=== PATIENT | female | born 1985 | race Caucasian/White ===

== ENCOUNTER 2017-02-22 13:53 | Inpatient (IN) | payer MEDICAID ==
[2017-02-22] MEDS ORDERED: Citric Acid/Sodium Citrate Solution 30 ML Cup PO ONE (14:55)
[2017-02-22] MEDS ORDERED: ceFAZolin 1 GM in Premix Bag 1 BAG IV ONE (14:55)
[2017-02-22] MEDS ORDERED: ceFAZolin 2 GM in Premix Bag 1 BAG IV ONE (14:55)
[2017-02-22] MEDS ORDERED: Metoclopramide 10 MG/2 ML SDV IVPUSH ONE (14:55)
[2017-02-22] MEDS ORDERED: Sodium Chloride 0.9% 10 ML Syringe FLUSH PRN (14:55)
[2017-02-22] MEDS ORDERED: Lactated Ringers 1,000 ML IV SCH ×2 (15:00→18:25)
--- NOTE | 2017-02-22 15:01 | PCM.LDHP ---
L&D History of Present Illness - General Date of Service: 02/22/17 Admit Problem/Dx: Patient Status Order with Admit Dx/Problem 02/22/17 14:55 Patient Status [ADT] Routine Admission Diagnosis/Problem Admission Diagnosis/Problem Pre-eclampsia Source of Information: Patient History Limitations: Reports: No Limitations - History of Present Illness Introduction:: Patient is a 31 y/o at 37 3/7 wks who presents for blood pressure monitoring after being seen in clinic. Had initially presented to clinic today with concerns of contractions. Cervix was closed, but she was noted to have 2 mild range blood pressures. Also had complained of some intermittent headaches. 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 (Approximate): Endocrine/Metabolic History: Reports: Diabetes, Gestational - Past Surgical History GI Surgical History: Reports: Cholecystectomy Female Surgical History: Reports: Section, D&C Musculoskeletal Surgical History: Reports: Arthroscopic Knee Social & Family History - Tobacco Use Smoking Status *Q: Current Every Day Smoker - Alcohol Use Alcohol Use History: No - Recreational Drug Use Recreational Drug Use: No H&P Review of Systems - Review of Systems: Review Of Systems: See Below General: Reports: No Symptoms Pulmonary: Reports: No Symptoms Cardiovascular: Reports: No Symptoms Gastrointestinal: Reports: No Symptoms Genitourinary: Reports: No Symptoms Musculoskeletal: Reports: No Symptoms Psychiatric: Reports: No Symptoms Neurological: Reports: Headache L&D Exam - Exam Exam: See Below - Vital Signs Vital Signs: Last Vital Signs Temp 36.8 C 02/22/17 14:05 Pulse 88 02/22/17 14:05 Resp 18 02/22/17 14:05 BP 165/101 H 02/22/17 14:05 Pulse Ox 98 02/22/17 14:05 Weight: 129.637 kg - OB Specific Contraction Intensity: Mild Movement: Active Heart Tones: Present Heart Tones per Min: 135 Heart Rate (FHR) Variability: Moderate (6-25 bmp) Presentation: Unable to Assess - Villalba Score Villalba Score Cervix Position: Posterior Villalba Score Consistency: Firm Villalba Score Effacement: 0-30% Villalba Score Dilation: Closed Villalba Score Infant's Station: -3 Villalba Score Total: 0 - Exam General: Alert, Oriented, Cooperative Lungs: Clear to Auscultation, Normal Respiratory Effort Cardiovascular: Regular Rate, Regular Rhythm GI/Abdominal Exam: Soft, Non-Tender Genitourinary: Normal external exam Extremities: Normal Inspection Skin: Warm, Dry, Intact DTR: 3+: Patella (L), Patella (R) Psychiatric: Alert, Normal Affect, Normal Mood - Patient Data Lab Results Last 24 hrs: Laboratory Results - last 24 hr 02/22/17 02/22/17 Range/Units 14:34 14:34 WBC 11.47 H (3.98-10.04) K/mm3 RBC 4.12 (3.98-5.22) M/mm3 Hgb 12.5 (11.2-15.7) gm/L Hct 36.9 (34.1-44.9) % MCV 89.6 (79.4-94.8) fl MCH 30.3 (25.6-32.2) pg MCHC 33.9 (32.2-35.5) g/dl RDW Std Deviation 47.2 H (36.4-46.3) fL Plt Count 203 (182-369) K/mm3 MPV 10.9 (9.4-12.3) fl Creatinine 0.7 (0.55-1.02) mg/dL Est Cr Clr Drug Dosing 104.78 mL/min Estimated GFR (MDRD) > 60 (>60) mL/min AST 52 H (15-37) U/L ALT 85 H (14-59) U/L Result Diagrams: 02/22/17 14:34 02/22/17 14:34 - Problem List (1) 37 weeks gestation of SNOMED Code(s): 15182669 ICD Code: Z3A.37 - 37 WEEKS GESTATION OF Status: Acute Current Visit: Yes (2) Preeclampsia SNOMED Code(s): 059604569 ICD Code: O14.90 - UNSPECIFIED PRE-ECLAMPSIA, UNSPECIFIED TRIMESTER Status : Acute Current Visit: Yes Qualifiers: Trimester: third trimester Qualified Code(s): O14.93 - Unspecified pre- eclampsia, third trimester (3) History of SNOMED Code(s): 711480886 ICD Code: Z98.891 - HISTORY OF UTERINE SCAR FROM PREVIOUS SURGERY Status: Acute Current Visit: Yes Problem List Initiated/Reviewed/Updated: Yes Orders Last 24hrs: Active Orders 24 hr Category Date Time Status Patient Status [ADT] Routine ADT 02/22/17 14:55 Ordered Communication Order [RC] ROUTINE Care 02/22/17 14:55 Ordered Heart Tones [RC] PER UNIT ROUTINE Care 02/22/17 14:55 Ordered Peripheral IV Care [RC] . DIRECTED Care 02/22/17 14:56 Ordered Procedure Site Prep Instruct [RC] ASDIRECTED Care 02/22/17 14:55 Ordered Verify Patient Consent Obtain [RC] PER UNIT ROUTINE Care 02/22/17 14:55 Ordered Vital Signs [RC] PFP Care 02/22/17 14:55 Ordered Nothing Per Oral Diet [DIET] Diet 02/22/17 Lunch Ordered TYPE AND SCREEN [BBK] Routine Lab 02/22/17 14:54 Ordered UA W/O MICROSCOPIC [URIN] Routine Lab 02/22/17 14:13 Uncollected Citric Acid/Sodium Citrate [Bicitra Solution] Med 02/22/17 14:55 Once 30 ml PO ONETIME ONE Lactated Ringers @ 125 MLS/HR(1000ml) Med 02/22/17 15:00 Ordered Lactated Ringers [Ringers, Lactated] 1,000 ml IV ASDIRECTED Metoclopramide [Reglan] Med 02/22/17 14:55 Once 10 mg IVPUSH ONETIME ONE Sodium Chloride 0.9% [Saline Flush] Med 02/22/17 14:55 Ordered 10 ml FLUSH ASDIRECTED PRN ceFAZolin [Ancef] 1 gm Med 02/22/17 14:55 Ordered Premix Bag 1 bag IV ONETIME ceFAZolin [Ancef] 2 gm Med 02/22/17 14:55 Ordered Premix Bag 1 bag IV ONETIME Peripheral IV Insertion Adult [OM.PC] Routine Oth 02/22/17 14:55 Ordered Schedule Procedure [COMM] Per Unit Routine Oth 02/22/17 14:55 Ordered Resuscitation Status Routine Resus Stat 02/22/17 14:55 Ordered Assessment/Plan Comment:: 31 y/o at 37 3/7 wks presents for serial BP's with findings of all mild range and intermittently severe range BP's. Labs have also returned with mild elevation in LFT's (52/85). Will plan moving forward with RLTCS. Consent reviewed and signed. Plan for magnesium . Linda Soni MD
[2017-02-22] MEDS ORDERED: Pneumococcal Polyvalent-23 Vaccine 0.5 ML SDV IM ONE (15:04)
--- NOTE | 2017-02-22 15:17 | PCM.PREANE ---
Preanesthetic Assessment - Anesthesia/Transfusion/Family Hx Anesthesia History: Prior Anesthesia Without Reaction - Review of Systems General: No Symptoms Pulmonary: Other (smoker 1/2 pack per day) Cardiovascular: No Symptoms Gastrointestinal: Other (hearburn with ) Neurological: Other (fingertips are numb, intermittent headaches for the last couple of days) Other: Reports: None - Physical Assessment NPO Status Date: 02/22/17 NPO Status Time: 09:00 (cereal, H2O at 1500) Pulse: 81 O2 Sat by Pulse Oximetry: 98 Respiratory Rate: 18 Blood Pressure: 152/82 Temperature: 36.2 C Vital Signs: Last Vital Signs Temp 36.8 C 02/22/17 14:05 Pulse 88 02/22/17 14:05 Resp 18 02/22/17 14:05 BP 165/101 H 02/22/17 14:05 Pulse Ox 98 02/22/17 14:05 Height: 1.65 m Weight: 129.637 kg ASA Class: 2E Mental Status: Alert & Oriented x3 Airway Class: Mallampati = 2 Dentition: Reports: Normal Dentition Thyro-Mental Finger Breadths: 3 Mouth Opening Finger Breadths: 3 ROM/Head Extension: Full Lungs: Clear to Auscultation, Normal Respiratory Effort Cardiovascular: Regular Rate, Regular Rhythm - Lab Values: Laboratory Last Values WBC 11.47 K/mm3 (3.98-10.04) H 02/22/17 14:34 RBC 4.12 M/mm3 (3.98-5.22) 02/22/17 14:34 Hgb 12.5 gm/L (11.2-15.7) 02/22/17 14:34 Hct 36.9 % (34.1-44.9) 02/22/17 14:34 MCV 89.6 fl (79.4-94.8) 02/22/17 14:34 MCH 30.3 pg (25.6-32.2) 02/22/17 14:34 MCHC 33.9 g/dl (32.2-35.5) 02/22/17 14:34 RDW Std Deviation 47.2 fL (36.4-46.3) H 02/22/17 14:34 Plt Count 203 K/mm3 (182-369) 02/22/17 14:34 MPV 10.9 fl (9.4-12.3) 02/22/17 14:34 Creatinine 0.7 mg/dL (0.55-1.02) 02/22/17 14:34 Est Cr Clr Drug Dosing 104.78 mL/min 02/22/17 14:34 Estimated GFR (MDRD) > 60 mL/min (>60) 02/22/17 14:34 AST 52 U/L (15-37) H 02/22/17 14:34 ALT 85 U/L (14-59) H 02/22/17 14:34 - Allergies Allergies/Adverse Reactions: Allergies Allergy/AdvReac Type Severity Reaction Status Date / Time No Known Allergies Allergy Verified 02/22/17 14:06 - Blood Blood Available: No Product(s) Available: None - Anesthesia Plan Pre-Op Medication Ordered: None, Antacids - Acknowledgements Anesthesia Type Planned: Spinal Pt an Appropriate Candidate for the Planned Anesthesia: Yes Alternatives and Risks of Anesthesia Discussed w Pt/Guardian: Yes Pt/Guardian Understands and Agrees with Anesthesia Plan: Yes PreAnesthesia Questionnaire PRODUCTION LEAD History: Reports: Endocrine/Metabolic History: Reports: Diabetes, Gestational - Past Surgical History GI Surgical History: Reports: Cholecystectomy Female Surgical History: Reports: Section, D&C - SUBSTANCE USE Smoking Status *Q: Current Every Day Smoker Recreational Drug Use History: No - HOME MEDS Home Medications: Home Meds Vits #93/Iron Fum/FA [ Formula Tablet] 1 each PO DAILY [History] - CURRENT (IN HOUSE) MEDS Current Meds: Current Medications Lactated Ringer's (Ringers, Lactated) 1,000 mls @ 125 mls/hr IV ASDIRECTED HAYES Cefazolin Sodium/Dextrose 2 gm (/ Premix) 50 mls @ 100 mls/hr IV ONETIME ONE Stop: 02/22/17 15:24 Cefazolin Sodium/Dextrose 1 gm (/ Premix) 50 mls @ 100 mls/hr IV ONETIME ONE Stop: 02/22/17 15:24 Sodium Chloride (Saline Flush) 10 ml FLUSH ASDIRECTED PRN PRN Reason: Keep Vein Open Discontinued Medications Citric Acid/Sodium Citrate (Bicitra Solution) 30 ml PO ONETIME ONE Stop: 02/22/17 14:56 Metoclopramide HCl (Reglan) 10 mg IVPUSH ONETIME ONE Stop: 02/22/17 14:56 Pneumococcal Polyvalent Vaccine (Pneumovax 23) 0.5 ml IM .ONCE ONE Stop: 02/22/17 15:05
[2017-02-22] MEDS ORDERED: Ketorolac 30 MG/ML SDV ONE (15:49)
[2017-02-22] MEDS ORDERED: Morphine PF 10 MG/10 ML SDV ONE (15:49)
[2017-02-22] MEDS ORDERED: ceFAZolin 1 GM Vial ONE ×2 (15:49→15:50)
[2017-02-22] MEDS ORDERED: Oxytocin 10 Units/1 ML SDV ONE (15:49)
[2017-02-22] MEDS ORDERED: Lactated Ringers 2,000 ML ONE (15:50)
[2017-02-22] MEDS ORDERED: Phenylephrine 1% 10 MG/ML SDV ONE (15:50)
[2017-02-22] MEDS ORDERED: Ondansetron 4 MG/2 ML SDV ONE (15:50)
--- NOTE | 2017-02-22 15:51 | PCM.OPNOTE ---
- General Post-Op/Procedure Note Date of Surgery/Procedure: 02/22/17 Operative Procedure(s): Repeat low transverse Findings: Moderate scar tissue between the rectus muscles and fascia. Moderate scar tissue between the bladder and the uterus. Thin lower uterine segment. Baby girl in a vertex presentation with weight of 7 lbs 14 oz and APGARS of 8 & 9. Normal appearance of uterus, fallopian tubes, and ovaries. Pre Op Diagnosis: 37 weeks gestation. Severe preeclampsia. History of c- section x3 Post-Op Diagnosis: Same Anesthesia Technique: Spinal Primary Surgeon: Linda Soni Secondary Surgeon: Ye Lindo Anesthesia Provider: Yohana Abdi Pathology: Cold blood collected. Placenta discarded. Fluid Replacement, Intraop: 1,150 Output, Urine Amount: 200 EBL in mLs: 500 Complications: None Condition: Good Free Text/Narrative:: The risks, benefits, indications, potential complications, and alternatives were explained to the patient and informed consent obtained. After induction of anesthesia, the patient was placed in a supine position and then draped and prepped in the usual sterile manner. A Pfannenstiel incision was made and carried down through the subcutaneous tissue to the fascia. Fascial incision was made and extended transversely. The fascia was from the underlying rectus tissue superiorly and inferiorly. The peritoneum was identified and entered. Peritoneal incision was extended longitudinally. The utero-vesical peritoneal reflection was incised transversely and the bladder flap was bluntly freed from the lower uterine segment. A low transverse uterine incision was made sharply with a scalpel and extended bluntly in a cephalocaudad direction. A baby girl was delivered from a vertex presentation with APGARS as above. After the umbilical cord was clamped and cut cord blood was obtained for evaluation. The placenta was removed intact and appeared normal. The uterus was exteriorized and cleared of clots. The uterine outline, tubes and ovaries appeared normal. The uterine incision was closed with running locked sutures of 0 Vicryl. Hemostasis was obtained by a second imbricating layer of 0 vicryl and several interrupted 0 vicryl sutures placed in figure of eight fashion. The uterus was then placed back into the abdomen. The infracolic gutters were cleared of blood clots. The fascia was then reapproximated with running sutures of looped 1 PDS. The sucutaneous tissue was irrigated with sterile warm normal saline, hemostasis obtained with cautery. This layer was also closed with a running 0 vicryl. The skin was reapproximated with running Subcuticular 4-0 monocryl sutures. Instrument, sponge, and needle counts were correct prior the abdominal closure and at the conclusion of the case.
[2017-02-22] MEDS ORDERED: ePHEDrine 50 MG/ML SDV IVPUSH PRN (16:22)
[2017-02-22] MEDS ORDERED: diphenhydrAMINE 50 MG/ML SDV IVPUSH PRN ×2 (16:22→18:25)
[2017-02-22] MEDS ORDERED: fentaNYL 100 MCG/2 ML SDV IVPUSH PRN (16:22)
[2017-02-22] MEDS ORDERED: Ondansetron 4 MG/2 ML SDV IVPUSH PRN (16:22)
[2017-02-22] MEDS ORDERED: HYDROmorphone 0.5 MG/0.5 ML Syringe IVPUSH PRN (16:22)
[2017-02-22] MEDS ORDERED: Meperidine PF 50 MG/ML Syringe IVPUSH PRN (16:22)
[2017-02-22] MEDS ORDERED: Phenylephrine 1 MG in Sodium Chloride 0.9% 10 ML IV SCH (16:30)
[2017-02-22] MEDS ORDERED: fentaNYL 100 MCG/2 ML SDV ONE (16:59)
--- NOTE | 2017-02-22 17:08 | PCM.POSTAN ---
POST ANESTHESIA ASSESSMENT - MENTAL STATUS Mental Status: Alert - VITAL SIGNS Pulse Rate: 70 SaO2: 97 Resp Rate: 21 Blood Pressure: 121/67 Temperature: 36.5 C - RESPIRATORY Respiratory Status: Respiratory Rate WNL, Airway Patent, O2 Saturation Stable, Supplemental Oxygen - CARDIOVASCULAR CV Status: Pulse Rate WNL, Blood Pressure Stable - GASTROINTESTINAL GI Status: No Symptoms - POST OP HYDRATION Hydration Status: Adequate & Stable
[2017-02-22] MEDS ORDERED: Magnesium Sulfate/Water 40 GM/1,000 ML BAG IV SCH (18:25)
[2017-02-22] MEDS ORDERED: Lanolin 100% Cream 7 GM Tube TOP PRN (18:25)
[2017-02-22] MEDS ORDERED: Calcium Gluconate 10% 1 GM/10 ML SDV IV PRN (20:26)
[2017-02-22] MEDS: Ketorolac 30 MG/ML SDV IVPUSH SCH (23:33)
[2017-02-23] MEDS ORDERED: Lactated Ringers 1,000 ML IV SCH (01:00)
[2017-02-23] MEDS: Ketorolac 30 MG/ML SDV IVPUSH SCH ×2 (05:46→11:00)
[2017-02-23] MEDS: Acetaminophen/oxyCODONE 325-5 MG Tab PO PRN ×3 (05:50→21:41)
--- NOTE | 2017-02-23 07:12 | PCM.PNPP ---
- General Info Date of Service: 02/23/17 Functional Status: Reports: Pain Controlled, Tolerating Diet - Review of Systems General: Reports: No Symptoms Pulmonary: Reports: No Symptoms Cardiovascular: Reports: No Symptoms Gastrointestinal: Reports: No Symptoms Genitourinary: Reports: No Symptoms Musculoskeletal: Reports: Shoulder Pain Neurological: Reports: No Symptoms - Patient Data Vital Signs - Most Recent: Last Vital Signs Temp 36.7 C 02/23/17 05:00 Pulse 72 02/23/17 05:02 Resp 18 02/23/17 06:00 BP 126/63 02/23/17 05:02 Pulse Ox 95 02/23/17 05:02 Weight - Most Recent: 129.637 kg I&O - Last 24 Hours: Intake & Output 02/22/17 02/23/17 02/23/17 22:59 06:59 14:59 Intake Total 2556 1770 Output Total 1355 645 Balance 1201 1125 Lab Results - Last 24 Hours: Laboratory Results - last 24 hr 02/22/17 02/22/17 02/22/17 Range/Units 14:34 14:34 14:35 WBC 11.47 H (3.98-10.04) K/mm3 RBC 4.12 (3.98-5.22) M/mm3 Hgb 12.5 (11.2-15.7) gm/L Hct 36.9 (34.1-44.9) % MCV 89.6 (79.4-94.8) fl MCH 30.3 (25.6-32.2) pg MCHC 33.9 (32.2-35.5) g/dl RDW Std Deviation 47.2 H (36.4-46.3) fL Plt Count 203 (182-369) K/mm3 MPV 10.9 (9.4-12.3) fl Creatinine 0.7 (0.55-1.02) mg/dL Est Cr Clr Drug Dosing 104.78 mL/min Estimated GFR (MDRD) > 60 (>60) mL/min AST 52 H (15-37) U/L ALT 85 H (14-59) U/L Urine Color (Yellow) Urine Appearance (Clear) Urine pH (5.0-8.0) Ur Specific Dane (1.005-1.030) Urine Protein (Negative) Urine Glucose (UA) (Negative) Urine Ketones (Negative) Urine Occult Blood (Negative) Urine Nitrite (Negative) Urine Bilirubin (Negative) Urine Urobilinogen (0.2-1.0) Ur Leukocyte Esterase (Negative) Blood Type A NEGATIVE Gel Antibody Screen Negative 02/22/17 02/23/17 02/23/17 Range/Units 14:40 06:10 06:10 WBC 11.26 H (3.98-10.04) K/mm3 RBC 3.47 L (3.98-5.22) M/mm3 Hgb 10.8 L (11.2-15.7) gm/L Hct 31.9 L (34.1-44.9) % MCV 91.9 (79.4-94.8) fl MCH 31.1 (25.6-32.2) pg MCHC 33.9 (32.2-35.5) g/dl RDW Std Deviation 48.4 H (36.4-46.3) fL Plt Count 193 (182-369) K/mm3 MPV 11.5 (9.4-12.3) fl Creatinine (0.55-1.02) mg/dL Est Cr Clr Drug Dosing mL/min Estimated GFR (MDRD) (>60) mL/min AST 58 H (15-37) U/L ALT 86 H (14-59) U/L Urine Color Yellow (Yellow) Urine Appearance Clear (Clear) Urine pH 7.0 (5.0-8.0) Ur Specific Dane 1.020 (1.005-1.030) Urine Protein Negative (Negative) Urine Glucose (UA) Negative (Negative) Urine Ketones Negative (Negative) Urine Occult Blood Negative (Negative) Urine Nitrite Negative (Negative) Urine Bilirubin Negative (Negative) Urine Urobilinogen 0.2 (0.2-1.0) Ur Leukocyte Esterase Negative (Negative) Blood Type Gel Antibody Screen 02/23/17 Range/Units 06:10 WBC (3.98-10.04) K/mm3 RBC (3.98-5.22) M/mm3 Hgb (11.2-15.7) gm/L Hct (34.1-44.9) % MCV (79.4-94.8) fl MCH (25.6-32.2) pg MCHC (32.2-35.5) g/dl RDW Std Deviation (36.4-46.3) fL Plt Count (182-369) K/mm3 MPV (9.4-12.3) fl Creatinine 0.8 (0.55-1.02) mg/dL Est Cr Clr Drug Dosing 91.68 mL/min Estimated GFR (MDRD) > 60 (>60) mL/min AST (15-37) U/L ALT (14-59) U/L Urine Color (Yellow) Urine Appearance (Clear) Urine pH (5.0-8.0) Ur Specific Dane (1.005-1.030) Urine Protein (Negative) Urine Glucose (UA) (Negative) Urine Ketones (Negative) Urine Occult Blood (Negative) Urine Nitrite (Negative) Urine Bilirubin (Negative) Urine Urobilinogen (0.2-1.0) Ur Leukocyte Esterase (Negative) Blood Type Gel Antibody Screen Med Orders - Current: Current Medications Calcium Gluconate (Calcium Gluconate) 1 gm IV ASDIRECTED PRN PRN Reason: respiratory distress Diphenhydramine HCl (Benadryl) 25 mg IVPUSH Q6H PRN PRN Reason: pruritis Last Admin: 02/22/17 18:48 Dose: 25 mg Diphenhydramine HCl (Benadryl) 25 mg IVPUSH Q6H PRN PRN Reason: Itching or Nausea Last Admin: 02/23/17 01:37 Dose: 25 mg Docusate Sodium (Colace) 100 mg PO Q12H PRN PRN Reason: Constipation Emollient Ointment (Lansinoh Hpa) 0 gm TOP ASDIRECTED PRN PRN Reason: Sore Nipples Ephedrine Sulfate (Ephedrine Sulfate) 5 mg IVPUSH ASDIRECTED PRN PRN Reason: Hypotension Phenylephrine HCl 1 mg/ Sodium (Chloride) 10.1 mls @ 1 mls/sec IV TITRATE HAYES PRN Reason: Protocol Lactated Ringer's (Ringers, Lactated) 1,000 mls @ 75 mls/hr IV ASDIRECTED HAYES Stop: 02/23/17 07:44 Last Admin: 02/22/17 19:04 Dose: 75 mls/hr Magnesium Sulfate (Magnesium Sulfate 40 Gm In Water 1000 Ml) 40 gm in 1,000 mls @ 50 mls/hr IV ASDIRECTED HAYES Last Admin: 02/22/17 19:05 Dose: 50 mls/hr Lactated Ringer's (Ringers, Lactated) 1,000 mls @ 75 mls/hr IV ASDIRECTED [facility] Last Admin: 02/23/17 01:27 Dose: 75 mls/hr Ibuprofen (Motrin) 600 mg PO Q6H PRN PRN Reason: mild pain or fever Ketorolac Tromethamine (Toradol) 30 mg IVPUSH Q6H HAYES Stop: 02/23/17 11:01 Last Admin: 02/23/17 05:46 Dose: 30 mg Meperidine HCl (Demerol) 12.5 mg IVPUSH ONETIME PRN PRN Reason: shivering Stop: 02/23/17 16:23 Ondansetron HCl (Zofran) 4 mg IVPUSH ONETIME PRN PRN Reason: Nausea/Vomiting Oxycodone/Acetaminophen (Percocet 325-5 Mg) 2 tab PO Q4H PRN PRN Reason: Pain (moderate 4-6) Last Admin: 02/23/17 05:50 Dose: 2 tab Discontinued Medications Cefazolin Sodium (Ancef) Confirm Administered Dose 2 gm .ROUTE .STK-MED ONE Stop: 02/22/17 15:50 Cefazolin Sodium (Ancef) Confirm Administered Dose 1 gm .ROUTE .STK-MED ONE Stop: 02/22/17 15:51 Citric Acid/Sodium Citrate (Bicitra Solution) 30 ml PO ONETIME ONE Stop: 02/22/17 14:56 Last Admin: 02/22/17 15:29 Dose: 30 ml Fentanyl (Sublimaze) 50 mcg IVPUSH Q5M PRN PRN Reason: Pain Stop: 02/22/17 16:38 Fentanyl (Sublimaze) Confirm Administered Dose 100 mcg .ROUTE .STK-MED ONE Stop: 02/22/17 17:00 Hydromorphone HCl (Dilaudid) 0.5 mg IVPUSH Q15M PRN PRN Reason: severe pain Stop: 02/22/17 16:38 Lactated Ringer's (Ringers, Lactated) 1,000 mls @ 125 mls/hr IV ASDIRECTED [facility] Last Admin: 02/22/17 15:00 Dose: 125 mls/hr Cefazolin Sodium/Dextrose 2 gm (/ Premix) 50 mls @ 100 mls/hr IV ONETIME ONE Stop: 02/22/17 15:24 Cefazolin Sodium/Dextrose 1 gm (/ Premix) 50 mls @ 100 mls/hr IV ONETIME ONE Stop: 02/22/17 15:24 Last Admin: 02/23/17 03:46 Dose: Not Given Lactated Ringer's (Ringers, Lactated) Confirm Administered Dose 2,000 mls @ as directed .ROUTE .STK-MED ONE Stop: 02/22/17 15:51 Ketorolac Tromethamine (Toradol) Confirm Administered Dose 30 mg .ROUTE .STK- MED ONE Stop: 02/22/17 15:50 Metoclopramide HCl (Reglan) 10 mg IVPUSH ONETIME ONE Stop: 02/22/17 14:56 Last Admin: 02/22/17 15:29 Dose: 10 mg Morphine Sulfate (Duramorph Pf) Confirm Administered Dose 10 mg .ROUTE .STK-MED ONE Stop: 02/22/17 15:50 Ondansetron HCl (Zofran) Confirm Administered Dose 4 mg .ROUTE .STK-MED ONE Stop: 02/22/17 15:51 Oxytocin (Pitocin) Confirm Administered Dose 10 unit .ROUTE .STK-MED ONE Stop: 02/22/17 15:50 Phenylephrine HCl (Andrew-Synephrine) Confirm Administered Dose 10 mg .ROUTE .STK- MED ONE Stop: 02/22/17 15:51 Pneumococcal Polyvalent Vaccine (Pneumovax 23) 0.5 ml IM .ONCE ONE Stop: 02/22/17 15:05 Sodium Chloride (Saline Flush) 10 ml FLUSH ASDIRECTED PRN PRN Reason: Keep Vein Open - Interaction Disposition, : in Room with Family Interaction: Holding Infant Infant Feeding: Bottle Fed Support Person: Significant Other - Recovery Exam Fundal Tone: Firm Fundal Level: 1 Fingerbreadths Above Umbilicus Fundal Placement: Midline Lochia Amount: Small, Moderate Lochia Color: Rubra/Red Perineum Description: Intact, Minimal Bruising/Swelling Episiotomy/Laceration: None Bladder Status: Indwelling Catheter in Place Urinary Elimination: Indwelling Catheter - Exam General: Alert, Oriented, Cooperative Lungs: Clear to Auscultation, Normal Respiratory Effort Cardiovascular: Regular Rate, Regular Rhythm GI/Abdominal Exam: Soft, Tender (appropriate) Extremities: Pedal Edema Skin: Warm, Dry, Intact Wound/Incisions: Dressing Dry and Intact Neurological: Reflexes Equal Bilateral (+2) - Problem List & Annotations (1) 37 weeks gestation of SNOMED Code(s): 24129303 Code(s): Z3A.37 - 37 WEEKS GESTATION OF Status: Acute Current Visit: Yes (2) Preeclampsia SNOMED Code(s): 953255733 Code(s): O14.90 - UNSPECIFIED PRE-ECLAMPSIA, UNSPECIFIED TRIMESTER Status: Acute Current Visit: Yes Qualifiers: Trimester: third trimester Qualified Code(s): O14.93 - Unspecified pre- eclampsia, third trimester (3) History of SNOMED Code(s): 662106002 Code(s): Z98.891 - HISTORY OF UTERINE SCAR FROM PREVIOUS SURGERY Status: Acute Current Visit: Yes - Problem List Review Problem List Initiated/Reviewed/Updated: Yes - My Orders Last 24 Hours: My Active Orders 02/22/17 14:55 Heart Tones [RC] PER UNIT ROUTINE Vital Signs [RC] PFP Resuscitation Status Routine 02/22/17 18:25 Antiembolic Devices [RC] BID Communication Order [RC] PER UNIT ROUTINE Intake and Output [RC] Q2HR Notify Provider Intake and Out [RC] ASDIRECTED RT Incentive Spirometry [RC] Q2HWA Vital Signs [RC] Q1HR Acetaminophen/oxyCODONE [Percocet 325-5 MG] 2 tab PO Q4H PRN Docusate Sodium [Colace] 100 mg PO Q12H PRN Ibuprofen [Motrin] 600 mg PO Q6H PRN Lactated Ringers [Ringers, Lactated] 1,000 ml IV ASDIRECTED Lanolin [Lansinoh HPA] See Dose Instructions TOP ASDIRECTED PRN Magnesium Sulfate/Water [Magnesium Sulfate 40 GM in Water 1000 ML] 40 gm in 1, 000 ml IV ASDIRECTED diphenhydrAMINE [Benadryl] 25 mg IVPUSH Q6H PRN Assess Lochia [WOMSER] Per Unit Routine Assess Uterine Involution [WOMSER] Per Unit Routine Breast Pump [WOMSER] Per Unit Routine Heat Therapy [OM.PC] Per Unit Routine Sequential Compression Device [OM.PC] Per Unit Routine 02/22/17 20:25 Bedrest [RC] ASDIRECTED 02/22/17 20:26 Communication Order [RC] ASDIRECTED Notify Provider Status Change [RC] ASDIRECTED Notify Provider [RC] ASDIRECTED Calcium Gluconate 1 gm IV ASDIRECTED PRN 02/22/17 20:30 Deep Tendon Reflexes [WOMSER] ASDIRECTED 02/22/17 22:15 Communication Order [RC] ASDIRECTED 02/22/17 23:00 Ketorolac [Toradol] 30 mg IVPUSH Q6H 02/22/17 Dinner Regular Diet [DIET] 02/23/17 01:00 Lactated Ringers [Ringers, Lactated] 1,000 ml IV ASDIRECTED 02/23/17 06:10 RHOGAM, [RHIG WORKUP, ] [BBK] Routine 02/23/17 17:39 Urinary Catheter Removal [RC] Per Unit Routine - Assessment Assessment:: 31 y/o POD#1 from RLTCS at 37 3/7 wks - Plan Plan:: RLTCS * Routine cares * Bottle feeding * Repeat labs this AM * Continue magnesium for now, reassess in PM * Strict I&O's Linda Soni MD
--- NOTE | 2017-02-23 10:13 | PCM48HPAN ---
Post Anesthesia Note - EVALUATION WITHIN 48HRS OF ANESTHETIC Vital Signs in Normal Range: Yes Patient Participated in Evaluation: Yes Respiratory Function Stable: Yes Airway Patent: Yes Cardiovascular Function Stable: Yes Hydration Status Stable: Yes Pain Control Satisfactory: Yes Nausea and Vomiting Control Satisfactory: Yes Mental Status Recovered: Yes
[2017-02-23] MEDS: Docusate Sodium 100 MG Cap PO PRN (21:40)
[2017-02-23] MEDS: Ibuprofen 600 MG Tab PO PRN (21:42)
[2017-02-24] MEDS: Acetaminophen/oxyCODONE 325-5 MG Tab PO PRN ×4 (02:36→20:37)
--- NOTE | 2017-02-24 07:05 | PCM.PNPP ---
- General Info Date of Service: 02/24/17 Functional Status: Reports: Pain Controlled, Tolerating Diet, Ambulating, Urinating - Review of Systems General: Reports: No Symptoms Pulmonary: Reports: No Symptoms Cardiovascular: Reports: No Symptoms Gastrointestinal: Reports: No Symptoms Genitourinary: Reports: No Symptoms - Patient Data Vital Signs - Most Recent: Last Vital Signs Temp 36.9 C 02/24/17 03:27 Pulse 76 02/24/17 03:27 Resp 16 02/24/17 03:27 BP 120/81 02/24/17 03:27 Pulse Ox 97 02/24/17 03:27 Weight - Most Recent: 129.637 kg I&O - Last 24 Hours: Intake & Output 02/23/17 02/24/17 02/24/17 22:59 06:59 14:59 Intake Total 681 650 Output Total 1200 1550 Balance -519 -900 Lab Results - Last 24 Hours: Laboratory Results - last 24 hr 02/23/17 Range/Units 06:10 Blood Type Cancelled Gel Antibody Screen Cancelled Screen 0 ros/5 flds - neg RhIG Candidate? Yes Rhogam Indicated Cancelled Med Orders - Current: Current Medications Diphenhydramine HCl (Benadryl) 25 mg IVPUSH Q6H PRN PRN Reason: pruritis Last Admin: 02/22/17 18:48 Dose: 25 mg Diphenhydramine HCl (Benadryl) 25 mg IVPUSH Q6H PRN PRN Reason: Itching or Nausea Last Admin: 02/23/17 01:37 Dose: 25 mg Docusate Sodium (Colace) 100 mg PO Q12H PRN PRN Reason: Constipation Last Admin: 02/23/17 21:40 Dose: 100 mg Emollient Ointment (Lansinoh Hpa) 0 gm TOP ASDIRECTED PRN PRN Reason: Sore Nipples Ibuprofen (Motrin) 600 mg PO Q6H PRN PRN Reason: mild pain or fever Last Admin: 02/23/17 21:42 Dose: 600 mg Ondansetron HCl (Zofran) 4 mg IVPUSH ONETIME PRN PRN Reason: Nausea/Vomiting Oxycodone/Acetaminophen (Percocet 325-5 Mg) 2 tab PO Q4H PRN PRN Reason: Pain (moderate 4-6) Last Admin: 02/24/17 02:36 Dose: 2 tab Discontinued Medications Calcium Gluconate (Calcium Gluconate) 1 gm IV ASDIRECTED PRN PRN Reason: respiratory distress Cefazolin Sodium (Ancef) Confirm Administered Dose 2 gm .ROUTE .STK-MED ONE Stop: 02/22/17 15:50 Cefazolin Sodium (Ancef) Confirm Administered Dose 1 gm .ROUTE .STK-MED ONE Stop: 02/22/17 15:51 Citric Acid/Sodium Citrate (Bicitra Solution) 30 ml PO ONETIME ONE Stop: 02/22/17 14:56 Last Admin: 02/22/17 15:29 Dose: 30 ml Ephedrine Sulfate (Ephedrine Sulfate) 5 mg IVPUSH ASDIRECTED PRN PRN Reason: Hypotension Fentanyl (Sublimaze) 50 mcg IVPUSH Q5M PRN PRN Reason: Pain Stop: 02/22/17 16:38 Fentanyl (Sublimaze) Confirm Administered Dose 100 mcg .ROUTE .STK-MED ONE Stop: 02/22/17 17:00 Hydromorphone HCl (Dilaudid) 0.5 mg IVPUSH Q15M PRN PRN Reason: severe pain Stop: 02/22/17 16:38 Lactated Ringer's (Ringers, Lactated) 1,000 mls @ 125 mls/hr IV ASDIRECTED [facility] Last Admin: 02/22/17 15:00 Dose: 125 mls/hr Cefazolin Sodium/Dextrose 2 gm (/ Premix) 50 mls @ 100 mls/hr IV ONETIME ONE Stop: 02/22/17 15:24 Last Admin: 02/23/17 11:42 Dose: Not Given Cefazolin Sodium/Dextrose 1 gm (/ Premix) 50 mls @ 100 mls/hr IV ONETIME ONE Stop: 02/22/17 15:24 Last Admin: 02/23/17 03:46 Dose: Not Given Lactated Ringer's (Ringers, Lactated) Confirm Administered Dose 2,000 mls @ as directed .ROUTE .STK-MED ONE Stop: 02/22/17 15:51 Phenylephrine HCl 1 mg/ Sodium (Chloride) 10.1 mls @ 1 mls/sec IV TITRATE [facility] PRN Reason: Protocol Lactated Ringer's (Ringers, Lactated) 1,000 mls @ 75 mls/hr IV ASDIRECTED [facility] Stop: 02/23/17 07:44 Last Admin: 02/22/17 19:04 Dose: 75 mls/hr Magnesium Sulfate (Magnesium Sulfate 40 Gm In Water 1000 Ml) 40 gm in 1,000 mls @ 50 mls/hr IV ASDIRECTED [facility] Last Admin: 02/22/17 19:05 Dose: 50 mls/hr Lactated Ringer's (Ringers, Lactated) 1,000 mls @ 75 mls/hr IV ASDIRECTED [facility] Last Admin: 02/23/17 01:27 Dose: 75 mls/hr Ketorolac Tromethamine (Toradol) Confirm Administered Dose 30 mg .ROUTE .STK- MED ONE Stop: 02/22/17 15:50 Ketorolac Tromethamine (Toradol) 30 mg IVPUSH Q6H [facility] Stop: 02/23/17 11:01 Last Admin: 02/23/17 11:00 Dose: 30 mg Meperidine HCl (Demerol) 12.5 mg IVPUSH ONETIME PRN PRN Reason: shivering Stop: 02/23/17 16:23 Metoclopramide HCl (Reglan) 10 mg IVPUSH ONETIME ONE Stop: 02/22/17 14:56 Last Admin: 02/22/17 15:29 Dose: 10 mg Morphine Sulfate (Duramorph Pf) Confirm Administered Dose 10 mg .ROUTE .STK-MED ONE Stop: 02/22/17 15:50 Ondansetron HCl (Zofran) Confirm Administered Dose 4 mg .ROUTE .STK-MED ONE Stop: 02/22/17 15:51 Oxytocin (Pitocin) Confirm Administered Dose 10 unit .ROUTE .STK-MED ONE Stop: 02/22/17 15:50 Phenylephrine HCl (Andrew-Synephrine) Confirm Administered Dose 10 mg .ROUTE .STK- MED ONE Stop: 02/22/17 15:51 Pneumococcal Polyvalent Vaccine (Pneumovax 23) 0.5 ml IM .ONCE ONE Stop: 02/22/17 15:05 Last Admin: 02/23/17 16:58 Dose: Not Given Sodium Chloride (Saline Flush) 10 ml FLUSH ASDIRECTED PRN PRN Reason: Keep Vein Open - Interaction Infant Disposition, : [place] in Room with Family Infant Interaction: Holding Infant Feeding: Bottle Fed Support Person: Significant Other - Recovery Exam Fundal Tone: Firm Fundal Level: At Umbilicus Fundal Placement: Midline Lochia Amount: Small Lochia Color: Rubra/Red Perineum Description: Intact, Minimal Bruising/Swelling Episiotomy/Laceration: None Bladder Status: Voiding Urinary Elimination: Voided - Exam General: Alert, Oriented, Cooperative Lungs: Clear to Auscultation, Normal Respiratory Effort Cardiovascular: Regular Rate, Regular Rhythm GI/Abdominal Exam: Soft, Tender (appropriate post op) Extremities: Normal Inspection Skin: Warm, Dry, Intact Wound/Incisions: Healing Well, No Drainage - Problem List & Annotations (1) 37 weeks gestation of SNOMED Code(s): 19256696 Code(s): Z3A.37 - 37 WEEKS GESTATION OF Status: Acute Current Visit: Yes (2) Preeclampsia SNOMED Code(s): 609702092 Code(s): O14.90 - UNSPECIFIED PRE-ECLAMPSIA, UNSPECIFIED TRIMESTER Status: Acute Current Visit: Yes Qualifiers: Trimester: third trimester Qualified Code(s): O14.93 - Unspecified pre- eclampsia, third trimester (3) History of SNOMED Code(s): 810182290 Code(s): Z98.891 - HISTORY OF UTERINE SCAR FROM PREVIOUS SURGERY Status: Acute Current Visit: Yes - Problem List Review Problem List Initiated/Reviewed/Updated: Yes - My Orders Last 24 Hours: My Active Orders 02/23/17 16:40 Activity as Tolerated [RC] .Routine - Assessment Assessment:: 31 y/o POD#2 from RLTCS at 37 3/7 wks - Plan Plan:: RLTCS * Routine cares * Bottle feeding * BP's appropriate. Will need 1 week follow up * Plan discharge home tomorrow Linda Soni MD
[2017-02-24] MEDS: Ibuprofen 600 MG Tab PO PRN (18:55)
[2017-02-24] MEDS ORDERED: Simethicone 80 MG Tab.Chew PO PRN (20:31)
[2017-02-24] MEDS: Docusate Sodium 100 MG Cap PO PRN (20:37)
[2017-02-25] MEDS: Ibuprofen 600 MG Tab PO PRN (01:21)
[2017-02-25] MEDS: Acetaminophen/oxyCODONE 325-5 MG Tab PO PRN ×2 (02:14→10:38)
--- NOTE | 2017-02-25 07:18 | PCM.PNPP ---
- General Info Date of Service: 02/25/17 Functional Status: Reports: Pain Controlled, Tolerating Diet, Ambulating, Urinating - Review of Systems General: Reports: No Symptoms Pulmonary: Reports: No Symptoms Cardiovascular: Reports: No Symptoms Gastrointestinal: Reports: No Symptoms Genitourinary: Reports: No Symptoms Musculoskeletal: Reports: No Symptoms - Patient Data Vital Signs - Most Recent: Last Vital Signs Temp 36.6 C 02/25/17 04:36 Pulse 66 02/25/17 04:36 Resp 15 02/25/17 04:36 BP 153/80 H 02/25/17 06:00 Pulse Ox 96 02/25/17 04:36 Weight - Most Recent: 129.637 kg I&O - Last 24 Hours: Intake & Output 02/24/17 02/25/17 02/25/17 22:59 06:59 14:59 Intake Total 0 Output Total 200 Balance 0 -200 Med Orders - Current: Current Medications Diphenhydramine HCl (Benadryl) 25 mg IVPUSH Q6H PRN PRN Reason: pruritis Last Admin: 02/22/17 18:48 Dose: 25 mg Diphenhydramine HCl (Benadryl) 25 mg IVPUSH Q6H PRN PRN Reason: Itching or Nausea Last Admin: 02/23/17 01:37 Dose: 25 mg Docusate Sodium (Colace) 100 mg PO Q12H PRN PRN Reason: Constipation Last Admin: 02/24/17 20:37 Dose: 100 mg Emollient Ointment (Lansinoh Hpa) 0 gm TOP ASDIRECTED PRN PRN Reason: Sore Nipples Ibuprofen (Motrin) 600 mg PO Q6H PRN PRN Reason: mild pain or fever Last Admin: 02/25/17 01:21 Dose: 600 mg Ondansetron HCl (Zofran) 4 mg IVPUSH ONETIME PRN PRN Reason: Nausea/Vomiting Oxycodone/Acetaminophen (Percocet 325-5 Mg) 2 tab PO Q4H PRN PRN Reason: Pain (moderate 4-6) Last Admin: 02/25/17 02:14 Dose: 2 tab Simethicone (Simethicone) 80 mg PO Q6H PRN PRN Reason: Gas Last Admin: 02/24/17 20:37 Dose: 80 mg Discontinued Medications Calcium Gluconate (Calcium Gluconate) 1 gm IV ASDIRECTED PRN PRN Reason: respiratory distress Cefazolin Sodium (Ancef) Confirm Administered Dose 2 gm .ROUTE .STK-MED ONE Stop: 02/22/17 15:50 Cefazolin Sodium (Ancef) Confirm Administered Dose 1 gm .ROUTE .STK-MED ONE Stop: 02/22/17 15:51 Citric Acid/Sodium Citrate (Bicitra Solution) 30 ml PO ONETIME ONE Stop: 02/22/17 14:56 Last Admin: 02/22/17 15:29 Dose: 30 ml Ephedrine Sulfate (Ephedrine Sulfate) 5 mg IVPUSH ASDIRECTED PRN PRN Reason: Hypotension Fentanyl (Sublimaze) 50 mcg IVPUSH Q5M PRN PRN Reason: Pain Stop: 02/22/17 16:38 Fentanyl (Sublimaze) Confirm Administered Dose 100 mcg .ROUTE .STK-MED ONE Stop: 02/22/17 17:00 Hydromorphone HCl (Dilaudid) 0.5 mg IVPUSH Q15M PRN PRN Reason: severe pain Stop: 02/22/17 16:38 Lactated Ringer's (Ringers, Lactated) 1,000 mls @ 125 mls/hr IV ASDIRECTED [facility] Last Admin: 02/22/17 15:00 Dose: 125 mls/hr Cefazolin Sodium/Dextrose 2 gm (/ Premix) 50 mls @ 100 mls/hr IV ONETIME ONE Stop: 02/22/17 15:24 Last Admin: 02/23/17 11:42 Dose: Not Given Cefazolin Sodium/Dextrose 1 gm (/ Premix) 50 mls @ 100 mls/hr IV ONETIME ONE Stop: 02/22/17 15:24 Last Admin: 02/23/17 03:46 Dose: Not Given Lactated Ringer's (Ringers, Lactated) Confirm Administered Dose 2,000 mls @ as directed .ROUTE .STK-MED ONE Stop: 02/22/17 15:51 Phenylephrine HCl 1 mg/ Sodium (Chloride) 10.1 mls @ 1 mls/sec IV TITRATE [facility] PRN Reason: Protocol Lactated Ringer's (Ringers, Lactated) 1,000 mls @ 75 mls/hr IV ASDIRECTED [facility] Stop: 02/23/17 07:44 Last Admin: 02/22/17 19:04 Dose: 75 mls/hr Magnesium Sulfate (Magnesium Sulfate 40 Gm In Water 1000 Ml) 40 gm in 1,000 mls @ 50 mls/hr IV ASDIRECTED [facility] Last Admin: 02/22/17 19:05 Dose: 50 mls/hr Lactated Ringer's (Ringers, Lactated) 1,000 [facility] Last Admin: 02/23/17 01:27 Dose: 75 mls/hr Ketorolac Tromethamine (Toradol) Confirm Administered Dose 30 mg .ROUTE .STK- MED ONE Stop: 02/22/17 15:50 Ketorolac Tromethamine (Toradol) 30 mg IVPUSH Q6H [facility] Stop: 02/23/17 11:01 Last Admin: 02/23/17 11:00 Dose: 30 mg Meperidine HCl (Demerol) 12.5 mg IVPUSH ONETIME PRN PRN Reason: shivering Stop: 02/23/17 16:23 Metoclopramide HCl (Reglan) 10 mg IVPUSH ONETIME ONE Stop: 02/22/17 14:56 Last Admin: 02/22/17 15:29 Dose: 10 mg Morphine Sulfate (Duramorph Pf) Confirm Administered Dose 10 mg .ROUTE .STK-MED ONE Stop: 02/22/17 15:50 Ondansetron HCl (Zofran) Confirm Administered Dose 4 mg .ROUTE .STK-MED ONE Stop: 02/22/17 15:51 Oxytocin (Pitocin) Confirm Administered Dose 10 unit .ROUTE .STK-MED ONE Stop: 02/22/17 15:50 Phenylephrine HCl (Andrew-Synephrine) Confirm Administered Dose 10 mg .ROUTE .STK- MED ONE Stop: 02/22/17 15:51 Pneumococcal Polyvalent Vaccine (Pneumovax 23) 0.5 ml IM .ONCE ONE Stop: 02/22/17 15:05 Last Admin: 02/23/17 16:58 Dose: Not Given Sodium Chloride (Saline Flush) 10 ml FLUSH ASDIRECTED PRN PRN Reason: Keep Vein Open - Infant Interaction Disposition, : [place] in Room with Family Infant Interaction: Holding Infant Infant Feeding: Bottle Fed Infant Support Person: Significant Other - Recovery Exam Fundal Tone: Firm Fundal Level: At Umbilicus Fundal Placement: Midline Lochia Amount: Small Lochia Color: Rubra/Red Perineum Description: Intact, Minimal Bruising/Swelling Episiotomy/Laceration: None Bladder Status: Voiding Urinary Elimination: Voided - Exam General: Alert, Oriented, Cooperative Lungs: Clear to Auscultation, Normal Respiratory Effort Cardiovascular: Regular Rate, Regular Rhythm GI/Abdominal Exam: Soft, Non-Tender Extremities: Normal Inspection Skin: Warm, Dry, Intact Wound/Incisions: Healing Well, No Drainage Neurological: Reflexes Equal Bilateral - Problem List & Annotations (1) 37 weeks gestation of SNOMED Code(s): 40528905 Code(s): Z3A.37 - 37 WEEKS GESTATION OF Status: Acute (2) Preeclampsia SNOMED Code(s): 215361698 Code(s): O14.90 - UNSPECIFIED PRE-ECLAMPSIA, UNSPECIFIED TRIMESTER Status: Acute Qualifiers: Trimester: third trimester Qualified Code(s): O14.93 - Unspecified pre- eclampsia, third trimester (3) History of SNOMED Code(s): 690928119 Code(s): Z98.891 - HISTORY OF UTERINE SCAR FROM PREVIOUS SURGERY Status: Acute - Problem List Review Problem List Initiated/Reviewed/Updated: Yes - My Orders Last 24 Hours: My Active Orders 02/24/17 20:31 Simethicone 80 mg PO Q6H PRN - Assessment Assessment:: 31 y/o POD#3 from RLTCS at 37 3/7 wks - Plan Plan:: RLTCS * Routine cares * Bottle feeding * BP's last night upper mild range. Asymptomatic. Will need BP check next week with Dr. Singer * Discharge home today Linda Soni MD
--- NOTE | 2017-02-25 07:19 | PCM.DCSUM1 ---
Discharge Summary - Discharge Data Discharge Date: 02/25/17 Discharge Disposition: Home, Self-Care 01 Condition: Good - Discharge Diagnosis/Problem(s) (1) 37 weeks gestation of SNOMED Code(s): 78881241 ICD Code: Z3A.37 - 37 WEEKS GESTATION OF Status: Acute (2) Preeclampsia SNOMED Code(s): 402305640 ICD Code: O14.90 - UNSPECIFIED PRE-ECLAMPSIA, UNSPECIFIED TRIMESTER Status : Acute Qualifiers: Trimester: third trimester Qualified Code(s): O14.93 - Unspecified pre- eclampsia, third trimester (3) History of SNOMED Code(s): 555730123 ICD Code: Z98.891 - HISTORY OF UTERINE SCAR FROM PREVIOUS SURGERY Status: Acute - Patient Summary/Data Operative Procedure(s) Performed: Repeat low transverse Complications: None Consults: None Recommended Follow-up Testing/Procedures: Follow up in 1 week for BP check with Dr. Singer [facility] Course: 31 y/o presented at 37 3/7 wks for serial BP's given mild range pressures in clinic. This showed severe range and multiple mild range values. Given gestational age she was taken for RLTCS. See operative note. she did well. Was maintained on magnesium for ~20 hours . BP's after discontinuation of magnesium were normal to upper mild range. She was discharged home with plans for close follow up in clinic for BP check - Patient Instructions Diet: Regular Diet as Tolerated Activity: As Tolerated, No Lifting Over 10 Pounds Activity, Other: Pelvic Rest for 6 weeks Driving: Do Not Drive (While taking narcotics ) Showering/Bathing: May Shower, No Tub Bathing/Swimming Wound/Incision Care: Keep Operative Site/Wound Site Clean and Dry Notify Provider of: Fever, Increased Pain, Swelling and Redness, Drainage, Nausea and/or Vomiting - Discharge Plan Prescriptions/Med Rec: Acetaminophen/oxyCODONE [Percocet 325-5 MG] 2 tab PO Q4H PRN #25 tablet PRN Reason: Pain Home Medications: Home Meds Vits #93/Iron Fum/FA [ Formula Tablet] 1 each PO DAILY [History] Acetaminophen/oxyCODONE [Percocet 325-5 MG] 2 tab PO Q4H PRN #25 tablet [Rx] Docusate Sodium [Colace] 100 mg PO Q12H PRN #0 cap 02/24/17 [Rx] Ibuprofen [IJD: Ibuprofen] 600 mg PO Q6H PRN #0 tablet 02/24/17 [Rx] Patient Handouts: Smoking Cessation, Tips for Success, [id number], Smoking Hazards, Hypertension, Care After Delivery Referrals: Cami Singer MD [Primary Care Provider] - (1-2 weeks for incision check ) - Discharge Summary/Plan Comment DC Time >30 min.: No - Patient Data Vitals - Most Recent: Last Vital Signs Temp 36.6 C 02/25/17 04:36 Pulse 66 02/25/17 04:36 Resp 15 02/25/17 04:36 BP 153/80 H 02/25/17 06:00 Pulse Ox 96 02/25/17 04:36 Weight - Most Recent: 129.637 kg I&O - Last 24 hours: Intake & Output 02/24/17 02/25/17 02/25/17 22:59 06:59 14:59 Intake Total 0 Output Total 200 Balance 0 -200 Med Orders - Current: Current Medications Diphenhydramine HCl (Benadryl) 25 mg IVPUSH Q6H PRN PRN Reason: pruritis Last Admin: 02/22/17 18:48 Dose: 25 mg Diphenhydramine HCl (Benadryl) 25 mg IVPUSH Q6H PRN PRN Reason: Itching or Nausea Last Admin: 02/23/17 01:37 Dose: 25 mg Docusate Sodium (Colace) 100 mg PO Q12H PRN PRN Reason: Constipation Last Admin: 02/24/17 20:37 Dose: 100 mg Emollient Ointment (Lansinoh Hpa) 0 gm TOP ASDIRECTED PRN PRN Reason: Sore Nipples Ibuprofen (Motrin) 600 mg PO Q6H PRN PRN Reason: mild pain or fever Last Admin: 02/25/17 01:21 Dose: 600 mg Ondansetron HCl (Zofran) 4 mg IVPUSH ONETIME PRN PRN Reason: Nausea/Vomiting Oxycodone/Acetaminophen (Percocet 325-5 Mg) 2 tab PO Q4H PRN PRN Reason: Pain (moderate 4-6) Last Admin: 02/25/17 02:14 Dose: 2 tab Simethicone (Simethicone) 80 mg PO Q6H PRN PRN Reason: Gas Last Admin: 02/24/17 20:37 Dose: 80 mg Discontinued Medications Calcium Gluconate (Calcium Gluconate) 1 gm IV ASDIRECTED PRN PRN Reason: respiratory distress Cefazolin Sodium (Ancef) Confirm Administered Dose 2 gm .ROUTE .STK-MED ONE Stop: 02/22/17 15:50 Cefazolin Sodium (Ancef) Confirm Administered Dose 1 gm .ROUTE .STK-MED ONE Stop: 02/22/17 15:51 Citric Acid/Sodium Citrate (Bicitra Solution) 30 ml PO ONETIME ONE Stop: 02/22/17 14:56 Last Admin: 02/22/17 15:29 Dose: 30 ml Ephedrine Sulfate (Ephedrine Sulfate) 5 mg IVPUSH ASDIRECTED PRN PRN Reason: Hypotension Fentanyl (Sublimaze) 50 mcg IVPUSH Q5M PRN PRN Reason: Pain Stop: 02/22/17 16:38 Fentanyl (Sublimaze) Confirm Administered Dose 100 mcg .ROUTE .STK-MED ONE Stop: 02/22/17 17:00 Hydromorphone HCl (Dilaudid) 0.5 mg IVPUSH Q15M PRN PRN Reason: severe pain Stop: 02/22/17 16:38 Lactated Ringer's (Ringers, Lactated) 1,000 mls @ 125 mls/hr IV ASDIRECTED [facility] Last Admin: 02/22/17 15:00 Dose: 125 mls/hr Cefazolin Sodium/Dextrose 2 gm (/ Premix) 50 mls @ 100 mls/hr IV ONETIME ONE Stop: 02/22/17 15:24 Last Admin: 02/23/17 11:42 Dose: Not Given Cefazolin Sodium/Dextrose 1 gm (/ Premix) 50 mls @ 100 mls/hr IV ONETIME ONE Stop: 02/22/17 15:24 Last Admin: 02/23/17 03:46 Dose: Not Given Lactated Ringer's (Ringers, Lactated) Confirm Administered Dose 2,000 mls @ as directed .ROUTE .STK-MED ONE Stop: 02/22/17 15:51 Phenylephrine HCl 1 mg/ Sodium (Chloride) 10.1 mls @ 1 mls/sec IV TITRATE [facility] PRN Reason: Protocol Lactated Ringer's (Ringers, Lactated) 1,000 mls @ 75 mls/hr IV ASDIRECTED [facility] Stop: 02/23/17 07:44 Last Admin: 02/22/17 19:04 Dose: 75 mls/hr Magnesium Sulfate (Magnesium Sulfate 40 Gm In Water 1000 Ml) 40 gm in 1,000 mls @ 50 mls/hr IV ASDIRECTED [facility] Last Admin: 02/22/17 19:05 Dose: 50 mls/hr Lactated Ringer's (Ringers, Lactated) 1,000 mls @ 75 mls/hr IV ASDIRECTED [facility] Last Admin: 02/23/17 01:27 Dose: 75 mls/hr Ketorolac Tromethamine (Toradol) Confirm Administered Dose 30 mg .ROUTE .STK- MED ONE Stop: 02/22/17 15:50 Ketorolac Tromethamine (Toradol) 30 mg IVPUSH Q6H [facility] Stop: 02/23/17 11:01 Last Admin: 02/23/17 11:00 Dose: 30 mg Meperidine HCl (Demerol) 12.5 mg IVPUSH ONETIME PRN PRN Reason: shivering Stop: 02/23/17 16:23 Metoclopramide HCl (Reglan) 10 mg IVPUSH ONETIME ONE Stop: 02/22/17 14:56 Last Admin: 02/22/17 15:29 Dose: 10 mg Morphine Sulfate (Duramorph Pf) Confirm Administered Dose 10 mg .ROUTE .STK-MED ONE Stop: 02/22/17 15:50 Ondansetron HCl (Zofran) Confirm Administered Dose 4 mg .ROUTE .STK-MED ONE Stop: 02/22/17 15:51 Oxytocin (Pitocin) Confirm Administered Dose 10 unit .ROUTE .STK-MED ONE Stop: 02/22/17 15:50 Phenylephrine HCl (Andrew-Synephrine) Confirm Administered Dose 10 mg .ROUTE .STK- MED ONE Stop: 02/22/17 15:51 Pneumococcal Polyvalent Vaccine (Pneumovax 23) 0.5 ml IM .ONCE ONE Stop: 02/22/17 15:05 Last Admin: 02/23/17 16:58 Dose: Not Given Sodium Chloride (Saline Flush) 10 ml FLUSH ASDIRECTED PRN PRN Reason: Keep Vein Open *Q Meaningful Use (DIS) - VTE *Q VTE Criteria *Q: - Stroke *Q Stroke Criteria *Q: - AMI *Q AMI Criteria *Q:
[2017-02-25 08:08] VITALS: BP 156/82
[2017-02-25] MEDS: Docusate Sodium 100 MG Cap PO PRN (08:09)
== END 2017-02-25 11:00 | disposition home or self-care (01) | DRG 766 ==
LOC: JD.OBCHECK 13:53 → JD.OB 13:55 → JD.OBCHECK 15:06
PROVIDERS: ADMIT Obstetrics & Gynecology; ATTEND Obstetrics & Gynecology
PROC: 10D00Z1 Extraction of Products of Conception, Low, Open Approach (ICD-10-PCS; principal; 2017-02-22)
DX: O14.94 Unspecified pre-eclampsia, complicating childbirth (principal); O34.211 Maternal care for low transverse scar from previous cesarean delivery; N85.8 Other specified noninflammatory disorders of uterus; O99.334 Smoking (tobacco) complicating childbirth; Z3A.37 37 weeks gestation of pregnancy; Z37.0 Single live birth
CPT/HCPCS: 01961; 36415; 81003; 82565; 84450; 84460; 85027; 85461; 86850; 86900; 86901; A9270-GY; J0690; J1200; J1885; J2270; J2370; J2405; J2590; J2765; J2790; J3010; J3475; J7120

== ENCOUNTER 2017-08-09 17:19 | Emergency (ER) | payer MEDICAID ==
--- NOTE | 2017-08-09 17:45 | EDM.PDOC ---
ED HPI GENERAL MEDICAL PROBLEM - General Chief Complaint: CHARGER Problem Stated Complaint: 12 WEEKS PREG AND BLEEDING Time Seen by Provider: 08/09/17 17:45 Source of Information: Reports: Patient - History of Present Illness INITIAL COMMENTS - FREE TEXT/NARRATIVE: Patient is here for evaluation for vaginal bleeding. She is 12 weeks 2 days . 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 Patient states that she had some vaginal spotting early this morning, she did classic pass a clot about the size of a raisin around 3:30 PM. She denies any abdominal pain at all, does have some mild lower back pain but this has also been chronic for her. Patient has had ultrasound several weeks ago that did demonstrate that the was intrauterine. She is known Rh-. Patient's [facility] [employer] W[employer]ER is Dr. Varela and she has an appointment to see her on Wednesday. - Related Data Allergies Allergy/AdvReac Type Severity Reaction Status Date / Time No Known Allergies Allergy Verified 02/22/17 14:06 Home Meds: Home Meds Vits #93/Iron Fum/FA [ Formula Tablet] 1 each PO DAILY [History] Past Medical History CHARGER History: Reports: Endocrine/Metabolic History: Reports: Diabetes, Gestational - Infectious Disease History Infectious Disease History: Reports: Chicken Pox - Past Surgical History GI Surgical History: Reports: Cholecystectomy Female Surgical History: Reports: Section, D&C Musculoskeletal Surgical History: Reports: Arthroscopic Knee Social & Family History - Family History Family Medical History: Noncontributory - Tobacco Use Smoking Status *Q: Current Every Day Smoker Years of Tobacco use: 17 Packs/Tins Daily: 0.5 - Recreational Drug Use Recreational Drug Use: No ED ROS GENERAL - Review of Systems Review Of Systems: See Below Constitutional: Reports: No Symptoms Respiratory: Reports: No Symptoms Cardiovascular: Reports: No Symptoms GI/Abdominal: Reports: No Symptoms : Reports: Other (Vaginal bleeding) ED EXAM - Physical Exam Exam: See Below Exam Limited By: No Limitations General Appearance: Alert, WD/WN, No Apparent Distress Respiratory/Chest: No Respiratory Distress, Lungs Clear, Normal Breath Sounds Cardiovascular: Regular Rate, Rhythm, No Murmur GI/Abdominal Exam: Normal Bowel Sounds, Soft, Non-Tender (No abdominal pain) (Female) Exam: Enlarged Uterus, Vaginal Bleeding (Small amount of blood in the vaginal vault). No: Adnexal Tenderness, Cervical Dilatation (Cervical os is closed) Course - Vital Signs Last Recorded V/S: Last Vital Signs Temp 99.0 F 08/09/17 17:24 Pulse 75 08/09/17 17:24 Resp 18 08/09/17 17:24 BP 139/104 H 08/09/17 17:24 Pulse Ox 100 08/09/17 17:24 - Orders/Labs/Meds Orders: Active Orders 24 hr Category Date Time Status RH IMMUNE GLOBULIN [BBK] Stat Lab 08/09/17 18:40 Results RHOGAM, [RHIG WORKUP, ] [BBK] Stat Lab 08/09/17 18:40 Results Labs: Laboratory Tests 08/09/17 08/09/17 08/09/17 Range/Units 18:40 18:40 18:40 WBC 10.19 H (3.98-10.04) K/mm3 RBC 4.29 (3.98-5.22) M/mm3 Hgb 12.2 (11.2-15.7) gm/L Hct 37.0 (34.1-44.9) % MCV 86.2 (79.4-94.8) fl MCH 28.4 (25.6-32.2) pg MCHC 33.0 (32.2-35.5) g/dl RDW Std Deviation 43.1 (36.4-46.3) fL Plt Count 207 (182-369) K/mm3 MPV 10.3 (9.4-12.3) fl Neutrophils % (Manual) 63 H (40-60) % Band Neutrophils % 1 (0-10) % Lymphocytes % (Manual) 32 (20-40) % Atypical Lymphs % 0 % Monocytes % (Manual) 3 (2-10) % Eosinophils % (Manual) 1 (0.7-5.8) % Basophils % (Manual) 0 L (0.1-1.2) Platelet Estimate Adequate RBC Morph Comment Normal HCG, Quant 1683.0 mIU/mL Blood Type A NEGATIVE Gel Antibody Screen Negative Rhogam Indicated Yes - Re-Assessments/Exams Free Text/Narrative Re-Assessment/Exam: Small amount of blood in vaginal vault, cervix is closed. Patient known Rh NEGATIVE. Will get US to further assess. 08/09/17 18:55 Ultrasound demonstrates a single intrauterine gestation measuring 10 weeks and 2 days, no heart activity is seen and this is compatible with nonviable . Patient's bleeding is minimal at this point, I did advise patient that if her bleeding should fill more than 1 pad per hour then she will need to return to the emergency room. Patient is currently having no pain. This patient is Rh-, she will need to be given Rhogam here in the emergency room as well. Discussed with patient's chief controller center, Dr. Singer, who will see her in the clinic first thing in the morning. 08/09/17 20:29 Departure - Departure Time of Disposition: 21:16 Disposition: Home, Self-Care 01 Condition: Fair Clinical Impression: Nonviable - Discharge Information Referrals: Cami Singer MD [Primary Care Provider] - Forms: ED Department Discharge Additional Instructions: US demonstrated no heartbeat. Bleeding will continue, if this should exceed 1 pad/hour return to the Emergency room. Call Dr Varela office in the morning for appointment to discuss further care. - My Orders Last 24 Hours: My Active Orders 08/09/17 18:40 RH IMMUNE GLOBULIN [BBK] Stat RHOGAM, [RHIG WORKUP, ] [BBK] Stat - Assessment/Plan Last 24 Hours: My Active Orders 08/09/17 18:40 RH IMMUNE GLOBULIN [BBK] Stat RHOGAM, [RHIG WORKUP, ] [BBK] Stat
--- NOTE | 2017-08-09 20:02 | US ---
First trimester obstetrical ultrasound: Multiple real-time images were obtained transabdominally. Comparison: No previous study. Dates: LMP: LMP given as 05/15/17, YNES 02/19/18, gestational age 12 weeks 2 days Current ultrasound: YNES 03/05/18, gestational age 10 weeks 2 days Single intrauterine gestation is seen. Amniotic fluid volume is normal. Embryo is identified. Unusual small cystic area is seen off the cephalad portion of the embryo. No subchorionic hemorrhage is seen. Right maternal ovary appears unremarkable. Left maternal ovary not visualized. Measurements: [place]-rump length: 3.42 cm - 10 weeks 2 days Heart rate: No heart activity is seen (absent for 1 minute). Impression: 1. Single intrauterine gestation. Dates as noted above. 2. Small cystic area off the cephalad portion of the embryo. 3. No heart activity is seen compatible with nonviable . Diagnostic code #5
[2017-08-09 21:33] VITALS: BP 144/79
== END 2017-08-09 21:30 | disposition home or self-care (01) ==
LOC: JD.ED 17:19
DX: O36.4XX0 Maternal care for intrauterine death, not applicable or unspecified (principal); O99.331 Smoking (tobacco) complicating pregnancy, first trimester; F17.210 Nicotine dependence, cigarettes, uncomplicated; Z3A.10 10 weeks gestation of pregnancy
CPT/HCPCS: 36415; 76801; 84702; 85025; 86850; 86900; 86901; 96372; 99284; J2790; 99282

== ENCOUNTER 2017-08-11 07:16 | Day surgery (SDC) | payer SELFPAY ==
[~2017-08-11 07:16] MED LIST: Lidocaine 1%/Sod Bicarbonate in NS 8.4% 1 ML Syringe IV PRN; Sodium Chloride 0.9% 10 ML Syringe FLUSH PRN
[2017-08-11] MEDS ORDERED: Ondansetron 4 MG/2 ML SDV ONE (07:27)
[2017-08-11] MEDS ORDERED: Midazolam 1 MG/ML 2 ML SDV ONE (07:27)
[2017-08-11] MEDS ORDERED: Lactated Ringers 1,000 ML ONE (07:27)
[2017-08-11] MEDS ORDERED: Propofol 200 MG/20 ML SDV ONE (07:28)
[2017-08-11] MEDS ORDERED: fentaNYL 250 MCG/5 ML SDV ONE (07:28)
[2017-08-11] MEDS ORDERED: Lidocaine 1% 4 ML ONE (07:28)
[2017-08-11] MEDS: Lactated Ringers 1,000 ML IV SCH ×2 (07:40→09:38)
--- NOTE | 2017-08-11 08:42 | PCM.OPNOTE ---
- General Post-Op/Procedure Note Date of Surgery/Procedure: 08/11/17 Operative Procedure(s): suction dilation and curettage Findings: 9 week size uterus. Good zaynab post procedure Pre Op Diagnosis: missed Post-Op Diagnosis: Same Anesthesia Technique: General ET Tube Primary Surgeon: Cami Singer Anesthesia Provider: Bhavani Ram Fluid Replacement, Intraop: 800 Output, Urine Amount: 200 EBL in mLs: 100 Condition: Stable Free Text/Narrative:: Taken to operating room. General anesthesia initiated. Prepped and draped in normal sterile fashion in lithotomy. Speculum placed. Cervix grasped with allis clamp. Sequentially dilated to allow passage of a 9 mm suction curette. Used to evacuate contents of uterus. Switched to a 6 mm and good zaynab obtained. Minimal bleeding. Instruments removed. Patient awakened and taken to PACU in good condition.
[2017-08-11] MEDS ORDERED: Albuterol 6.7 GM Inhaler INH ONE (08:43)
[2017-08-11] MEDS ORDERED: Succinylcholine/Normal Saline 100 MG/5 ML Syringe ONE (08:45)
[2017-08-11] MEDS ORDERED: Ketorolac 30 MG/ML SDV ONE (08:55)
--- NOTE | 2017-08-11 08:55 | PCM.POSTAN ---
POST ANESTHESIA ASSESSMENT - MENTAL STATUS Mental Status: Alert, Oriented - VITAL SIGNS Pulse Rate: 95 SaO2: 96 Resp Rate: 14 Blood Pressure: 143/92 Temperature: 36.6 C - RESPIRATORY Respiratory Status: Respiratory Rate WNL, Airway Patent, O2 Saturation Stable, Supplemental Oxygen - CARDIOVASCULAR CV Status: Blood Pressure Stable, Elevated Pulse Rate - GASTROINTESTINAL GI Status: No Symptoms - PAIN Pain Score: 0 - POST OP HYDRATION Hydration Status: Adequate & Stable
--- NOTE | 2017-08-11 08:58 | PCM.PREANE ---
Preanesthetic Assessment - Anesthesia/Transfusion/Family Hx Anesthesia History: Prior Anesthesia Without Reaction Transfusion History: No Prior Transfusion(s) - Review of Systems General: No Symptoms Pulmonary: No Symptoms, Other (Smokes /4-1/2 ppd. ) Cardiovascular: No Symptoms Gastrointestinal: No Symptoms Neurological: No Symptoms Other: Reports: None - Physical Assessment NPO Status Date: 08/10/17 NPO Status Time: 23:00 Pulse: 95 O2 Sat by Pulse Oximetry: 96 Respiratory Rate: 14 Blood Pressure: 143/92 Temperature: 36.6 C Vital Signs: Last Vital Signs Temp 36.6 C 08/11/17 08:54 Pulse 95 08/11/17 08:54 Resp 14 08/11/17 08:54 BP 143/92 H 08/11/17 08:54 Pulse Ox 96 08/11/17 08:54 Height: 1.65 m Weight: 124.738 kg ASA Class: 2 Mental Status: Alert & Oriented x3 Airway Class: Mallampati = 1 Dentition: Reports: Broken Tooth/Teeth (Significant black decay at gumline, enamel eroding on front teeth. ), Caries Thyro-Mental Finger Breadths: 3 Mouth Opening Finger Breadths: 3 ROM/Head Extension: Full Lungs: Normal Respiratory Effort, Decreased Breath Sounds Cardiovascular: Regular Rate, Regular Rhythm - Allergies Allergies/Adverse Reactions: Allergies Allergy/AdvReac Type Severity Reaction Status Date / Time No Known Allergies Allergy Verified 02/22/17 14:06 - Acknowledgements Anesthesia Type Planned: General Anesthesia Pt an Appropriate Candidate for the Planned Anesthesia: Yes Alternatives and Risks of Anesthesia Discussed w Pt/Guardian: Yes Pt/Guardian Understands and Agrees with Anesthesia Plan: Yes Additional Comments: Patient states she is approximately 12 weeks. 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 Neurological History: Reports: None Psychiatric History: Reports: None Endocrine/Metabolic History: Reports: Diabetes, Gestational Hematologic History: Reports: None Immunologic History: Reports: None Oncologic (Cancer) History: Reports: None Dermatologic History: Reports: None - Infectious Disease History Infectious Disease History: Reports: Chicken Pox - Past Surgical History Head Surgeries/Procedures: Reports: None HEENT Surgical History: Reports: None Cardiovascular Surgical History: Reports: None Respiratory Surgical History: Reports: None GI Surgical History: Reports: Cholecystectomy Female Surgical History: Reports: Section, D&C Endocrine Surgical History: Reports: None Neurological Surgical History: Reports: None Musculoskeletal Surgical History: Reports: Arthroscopic Knee Oncologic Surgical History: Reports: None Dermatological Surgical History: Reports: None - SUBSTANCE USE Smoking Status *Q: Current Every Day Smoker Tobacco Use Within Last Twelve Months: Cigarettes Recreational Drug Use History: No - HOME MEDS Home Medications: Home Meds Vits #93/Iron Fum/FA [ Formula Tablet] 1 each PO DAILY [History] - CURRENT (IN HOUSE) MEDS Current Meds: Current Medications Lactated Ringer's (Ringers, Lactated) 1,000 mls @ 125 mls/hr IV ASDIRECTED HAYES Last Admin: 08/11/17 07:40 Dose: 125 mls/hr Lidocaine/Sodium Bicarbonate (Buffered Lidocaine 1% In Ns 8.4%) 0.25 ml IV ONETIME PRN PRN Reason: Prior to IV Start Last Admin: 08/11/17 07:39 Dose: 0.25 ml Sodium Chloride (Saline Flush) 10 ml FLUSH ASDIRECTED PRN PRN Reason: Keep Vein Open Discontinued Medications Albuterol (Proventil Hfa) Confirm Administered Dose 6.7 gm INH .STK-MED ONE Stop: 08/11/17 08:44 Fentanyl (Sublimaze) Confirm Administered Dose 250 mcg .ROUTE .STK-MED ONE Stop: 08/11/17 07:29 Lactated Ringer's (Ringers, Lactated) Confirm Administered Dose 1,000 mls @ as directed .ROUTE .STK-MED ONE Stop: 08/11/17 07:28 Lidocaine HCl (Xylocaine-Mpf 1%) Confirm Administered Dose 4 mls @ as directed .ROUTE .STK-MED ONE Stop: 08/11/17 07:29 Ketorolac Tromethamine (Toradol) Confirm Administered Dose 30 mg .ROUTE .STK- MED ONE Stop: 08/11/17 08:56 Midazolam HCl (Versed 1 Mg/Ml) Confirm Administered Dose 2 mg .ROUTE .STK-MED ONE Stop: 08/11/17 07:28 Ondansetron HCl (Zofran) Confirm Administered Dose 4 mg .ROUTE .STK-MED ONE Stop: 08/11/17 07:28 Propofol (Diprivan 20 Ml) Confirm Administered Dose 600 mg .ROUTE .STK-MED ONE Stop: 08/11/17 07:29 Succinylcholine Chloride (Succinylcholine In Ns Pf) Confirm Administered Dose 100 mg .ROUTE .STK-MED ONE Stop: 08/11/17 08:46
[2017-08-11] MEDS ORDERED: HYDROmorphone 0.5 MG/0.5 ML Syringe IVPUSH PRN (09:24)
[2017-08-11] MEDS ORDERED: fentaNYL 100 MCG/2 ML SDV IVPUSH PRN (09:24)
[2017-08-11 10:08] VITALS: BP 102/57
== END 2017-08-11 10:30 | disposition home or self-care (01) ==
LOC: JD.SDS 07:16
PROVIDERS: ATTEND Obstetrics & Gynecology
DX: O02.1 Missed abortion (principal); F17.210 Nicotine dependence, cigarettes, uncomplicated; Z79.899 Other long term (current) drug therapy; Z90.49 Acquired absence of other specified parts of digestive tract
CPT/HCPCS: 59820; A9270; J0330; J1170; J1885; J2250; J2405; J3010; J7120; 01965; J2001; J2704